=== PATIENT | male | born 1995 | race Caucasian/White ===

== ENCOUNTER 2018-09-24 18:20 | Inpatient (IN) | payer MEDICAID ==
[~2018-09-24] VITALS: Ht 188 cm; Wt 71.7 kg
[2018-09-24 18:20] VITALS: BP 98/68
--- NOTE | 2018-09-24 18:20 | NUR ---
PATIENT BIB ALS TO ER BED 5.
--- NOTE | 2018-09-24 18:20 | NUR ---
PT BIB EMS C/O DRUG INGESTION. PER EMS PT WAS SEEKING TO GET HIGH, TOOK MOTHER'S MEDICATIONS INCLUDING APPROX 17 RESPERIDONE AND OTHER UNKNOWN MED 3 TABLET. DENIES SI AT THIS TIME. PT IS AAOX4, DROWAY TO SPEAK. CONNECTED TO THE FULL ECO INDUSTRIAL DEVELOPMENT CONSULTANT, O2 SAT NORAML WITH RA. DENIES ANY PAIN , SOB , VOMITING AT THIS TIME. ALSO REPORTS METH USE EARLIER TODAY. DENIES PMH NKA
[2018-09-24] MEDS ORDERED: NACL 0.9% 1,000 ML IV ONE ×2 (18:23→21:25)
--- NOTE | 2018-09-24 18:37 | NUR ---
certified scrub tech at bedside.
--- NOTE | 2018-09-24 18:44 | NUR ---
CALLED [facility] CONTR[facility] OFFICE, PHONE RECEIVED BY [facility] CONTROL OFICER.. THE FOLLOWING RECOMMENDATIONS HAVE BEEN DONE ON RESPIRIDONE INGESTION 17 TABS , 12 LEAD EKG RECOMMENDED. 6-8 HRS OF OBSERVATION OF THE OVERDOSE. ON S/S OF VERY SLEEPY, HYPOTENSIVE, GIVE IV FLUID BOLUS, LEVOFED, PHENYLNEPHRINE. ON 12 LEAD EKG, OT INTERVAL IF PROLONGED MORE THAN 500 DANYA SEC, DRAW THE BLOOD SAMPLE FOR POT, CALCIUM AND MAGNESIUM. ADMINISTER MAG BOLUS , AFTER CHECKING THE MAGNESIUM LEVEL ON THE PT. FOR EXTRA-PYRAMIDAL SYMPTOMS , BENEDRYL AND CONGENTIN SHOULD BE GIVEN. OTHER MEDS WOULD INCLUDE TYLENOL, PERFORM THE URINE DRUG SCREEN AND BLOOD ALCOHOL LEVEL. TREID TO GET THE PHONE NUMEBER OF HIS MOTHER FROM PT, COULD NOT GIVE CORRECTLY. PT GAVE [phone], [phone]. ASKED TO CALL MOTHER AND FIND OUT THE OTHER MEDS FROM MOM. PT NOT SURE ABOU HIS MOM NUMBER. MOTHJER NAME IS NORBERTO. PER [facility] QUARRY BOSS, INFORMATION IS ONLY FOR RESPIRIDONE. NEEDS TO FIND THE INFO ON OTHER UNKNOWN MED. DR. BAUTISTA NOTIFIED.
[2018-09-24] MEDS ORDERED: LACTATED RINGERS 1,000 ML IV ONE (18:50)
--- NOTE | 2018-09-24 18:57 | NUR ---
CALLED BOTH PHONE NUMBER [phone], [phone]. ONE WAS WRONG NUMBER AND OTHER WAS WRIONG SOLE SCRAPER.
[2018-09-24 19:04] LABS: BASOPHILS % (AUTO) 0.2 % (0.0-2.0); EOSINOPHILS # (AUTO) 0.1 K/uL (0-0.4); EOSINOPHILS % (AUTO) 0.9 % (0.0-4.0); HEMATOCRIT 43.1 % (36-52); HEMOGLOBIN 14.8 g/dL (12.0-18.0); LYMPHOCYTES % (AUTO) 33.3 % (20.5-51.1); MEAN CORPUSCULAR HEMOGLOBIN 29 pg (27-31); MEAN CORPUSCULAR HGB CONC 34 g/dL (33-37); MEAN CORPUSCULAR VOLUME 84.9 fL (80-94); MONOCYTES # (AUTO) 0.7 K/uL (0.8-1.0); MONOCYTES % (AUTO) 11.1 % (1.7-9.3); NEUTROPHILS # (AUTO) 3.4 K/uL (1.8-7.7); NEUTROPHILS % (AUTO) 54.5 % (42.2-75.2); PLATELET COUNT (AUTO) 231 K/uL (140-450); RED BLOOD CELL COUNT(AUTO) 5.07 MIL/uL (4.20-6.10); RED CELL DISTRIBUTION WIDTH 13.1 % (11.6-13.7); WHITE BLOOD COUNT (AUTO) 6.1 K/uL (4.8-10.8)
[2018-09-24 19:29] LABS: ANION GAP 10.7 (8-16); CARBON DIOXIDE 26.5 mmol/L (21-32); CHLORIDE 104 mmol/L (98-107); GFR ARICAN-AMERICAN 121 mL/min (>90); GLUCOSE 101 mg/dL (74-106); POTASSIUM 3.2 mmol/L (3.5-5.1); SODIUM SERUM 138 mmol/L (136-145); UREA NITROGEN, BLOOD 9 mg/dL (7-18)
--- NOTE | 2018-09-24 19:29 | NUR ---
BEDSIDE REPORT GIVEN TO PM NURSE.
--- NOTE | 2018-09-24 19:34 | NUR ---
PT ACTING APPRORPRIATLY, PT SPEAKING IN CLEAR AND COMPLETE SENTENCES; AAOX4. POSITIONED FOR COMFORT. HOB ELEVATED. VSS. PT STATES 0/10 PAIN AT THIS TIME.
[2018-09-24 19:35] LABS: ACETAMINOPHEN < 0.5 ug/ml (10-30); ALBUMIN 3.2 g/dL (3.4-5.0); ASPARTATE AMINOTRANSFERASE 17 U/L (15-37); SALICYLATE < 2.8 mg/dL (2.8-20.0); TOTAL BILIRUBIN 0.3 mg/dL (0.0-1.0)
--- NOTE | 2018-09-24 19:36 | NUR ---
PT STATES HE DOES NOT HAVE TO GO PEE AT THIS TIME, PT ENCOURAGED TO PROVIDE URINE SAMPLE. WILL FOLLOW UP.
[2018-09-24] MEDS ORDERED: ONDANSETRON 4 MG/2 ML VIAL IM/IVP PRN (20:15)
[2018-09-24] MEDS ORDERED: DOCUSATE SODIUM 100 MG GELCAP PO PRN (20:15)
[2018-09-24 20:31] LABS: PROTHROMBIN TIME 9.8 secs (10.8-13.4)
[2018-09-24 20:37] LABS: FREE T4 (FREE THYROXINE) 0.98 ng/dL (0.76-1.46); MAGNESIUM 1.9 mg/dL (1.8-2.4); PHOSPHORUS 3.1 mg/dL (2.5-4.9); THYROID STIMULATING HORMONE 1.41 uIU/mL (0.34-3.74)
--- NOTE | 2018-09-24 21:00 | NUR ---
RECEIVED BEDSIDE REPORT FROM LINE SUPERVISOR. PT IS AAOX4. ON ROOM AIR RESPIRATIONS ARE EQUAL AND UNLABORED. LUNG SOUNDS ARE CLEAR. SKIN INTACT. PT WITH 3 BULLET SCARS ON BODY REFUSED TO EXAMINE PELVIS AREA. PER PATIENT TWO BULLETS IN HIP AND ONE ON BACK OF R SHOULDER. PT AMBULATED TO BED WAS USING FURNITURE TO WALK LOSING HIS BALANCE WILL PLACE ON FALL PRECAUTION. ADMIT VS: 91/42 MAP 51. HR 68 97.4 RR 17 99% ON RA. DR PATTERSON IN TO SEE PT. C/C PT TOOK MOTHERS SEROQUEL AND RISPERDAL. ADMISSION ASSESSMENT LIMITED D/T HIS CONDITION. ORIENTED TO ROOM,STAFF AND VISITING HOURS. MRSA SWAB OBTAINED. CALL LIGHT WITHIN REACH. WILL ROUND FREQUENTLY.
--- NOTE | 2018-09-24 21:02 | NUR ---
Admited to Tele. Patient went to room 112-B via gurney by RN and EMT. Belongings list completed. Report to MARCI Yang. Patient acting appropriatly, and speaking in clear and complete sentences at this time.
[2018-09-24 21:04] VITALS: BP 91/42
[2018-09-24] MEDS ORDERED: POTASSIUM CHLORIDE 10 MEQ TABER PO SCH (21:30)
--- NOTE | 2018-09-24 21:36 | NUR ---
ADMINISTERED 60 MEQ OF K DUR PT K 3.2L PT TOLERATED WELL. SITTING UP EATING SANDWICH. ALL NEEDS MET AT THIS TIME. CALL LIGHT WITHIN REACH. BED ALARM ON.
[2018-09-24] MEDS: NACL 0.9% 1,000 ML IV SCH (22:23)
--- NOTE | 2018-09-24 22:45 | NUR ---
SPOKE WITH NGUYEN FROM POISON CONTROL ASKED IF EKG WAS PERFORMED. EKG #1 ST WITH NORMAL QT. ALSO ASKED REGARDING LATEST VS AND LOC. PT IS AAOX4 SPEAKING CLEARLY BUT REMAINS DROWSY. 91/42, HR 68, 16, 97.4, 99% RA. NGUYEN SAID IT SEEM LIKE HE IS IMPROVING IF HE WOULD HAVE A REACTION HE WOULD BE PROGRESSIVELY WORSE. SAID TO MONITOR PT B/P AND EKG FOR PROLONGED QT > 500. DOCTORS ARE AWARE.
[2018-09-24] MEDS ORDERED: MULTIVITAMIN-12 10 ML, THIAMINE 100 MG, MAGNESIUM SULFATE 50% 2,000 MG, FOLIC ACID 1 MG... IV SCH ×5 (22:50)
--- NOTE | 2018-09-24 23:00 | NUR ---
PATIENT IS BACK FROM RADIOLOGY. IN STABLE CONDITION REMAINS DROWSY. BUT AAOX4. NO S/S OF DISTRESS. WILL CONTINUE TO MONITOR.
[2018-09-24] MEDS ORDERED: FOLIC ACID 5 MG/ML SYR IM SCH (23:30)
[2018-09-24] MEDS ORDERED: MULTIVITAMIN-12 10 ML in NACL 0.9% 1,000 ML IV SCH (23:30)
[2018-09-24] MEDS ORDERED: THIAMINE 200 MG/2 ML VIAL IM SCH (23:30)
[2018-09-24] MEDS ORDERED: MAG SULF 2000 MG/WATER PREMIX 50 ML IV SCH (23:45)
[2018-09-24] MEDS ORDERED: MULTIVITAMIN-12 10 ML VIAL IV ONE (23:54)
[2018-09-25] VITALS (10 sets, daily range): BP systolic 98–142; BP diastolic 52–88
--- NOTE | 2018-09-25 00:23 | NUR ---
VITAL SIGNS ARE WITHIN NORMAL LIMITS. SCHEDULED MEDICATIONS GIVEN MG RIDER AND MX VIT ARE NOW INFUSING PER ORDERS. SAFETY MEASURES ARE IN PLACE. WILL CONTINUE TO MONITOR.
--- NOTE | 2018-09-25 02:20 | NUR ---
MT NOTIFIED ME PTS HR ELEVATED HIGHEST 171. WENT IN TO SEE PT. HE IS AWAKE STATES HE NEEDS TO USE BATHROOM TOOK VS: 145/82 HR 78. ASSISTED PT TO BATHROOM UA COLLECTED. NO S/S OF DISTRESS. WILL CONTINUE TO MONITOR
[2018-09-25 03:19] LABS: APPEARANCE,URINE SL CLOUDY (CLEAR); BILIRUBIN,URINE NEGATIVE (NEGATIVE); BLOOD, URINE NEGATIVE (NEGATIVE); COLOR,URINE YELLOW (YELLOW); LEUKOCYTE ESTERASE ,URINE NEGATIVE (NEGATIVE); NITRITE, URINE NEGATIVE (NEGATIVE); PH,URINE 8.5 (5.0-9.0); UGLUCOSE NEGATIVE (NEGATIVE)
[2018-09-25 03:26] LABS: BARBITURATE, URINE NEG. ng/ml (NEG <=200); BENZODIAZEPINE, URINE NEG. ng/mL (NEG <=200); CANNABINOID, URINE NEG. ng/mL (NEG <=50); COCAINE, URINE NEG. ng/mL (NEG <=300); OPIATE, URINE NEG. ng/mL (NEG <=2000); PHENCYCLIDINE SCREEN,URINE NEG. ng/mL (NEG <=25)
--- NOTE | 2018-09-25 03:30 | NUR ---
PATIENTS HR ELEVATED 170S DR PATTERSON MADE AWARE. VS: 111/63 HR 140. TEMP 97.8 17, 99% RA. EKG ORDERED STAT. PT WAS AGITATED IV LINE WAS TANGLED ON PATIENTS GOWN PATIENT TRYING TO UNTANGLED. REORIENTED PATIENT AND SORTED IV AND FIXED GOWN. SAFETY MEASURES ARE IN PLACE. CALL LIGHT WITHIN REACH. BED ALARM ON. WILL CONTINUE TO MONITOR.
--- NOTE | 2018-09-25 03:46 | NUR ---
PTS HEART RATE ELEVATED AGAIN AT 155 DOCTORS IN ROOM WITH PT. WILL FOLLOW ANY NEW ORDERS. SAFETY MEASURES ARE IN PLACE.
--- NOTE | 2018-09-25 03:59 | NUR ---
EKG BEING PERFORMED. BENADRYL ADMINISTERED PER ORDERS. PT TOLERATED WELL. WILL CONTINUE TO MONITOR.
[2018-09-25] MEDS ORDERED: diphenhydrAMINE 50 MG/ML VIAL IVP SCH ×2 (04:00→21:00)
[2018-09-25] MEDS: NACL 0.9% 1,000 ML IV SCH ×3 (04:47→19:06)
--- NOTE | 2018-09-25 05:15 | NUR ---
EDGAR MCDONOUGH CALLED STATES PATIENT WAS HANGING ON THE TV AND HIT THE WALL. WHEN WALKED IN PATIENT WAS LEANING ON ON WALL LEGS WERE WOBBLING SECURITY WAS CALLED AND ASSISTED PATIENT ON TO THE WHEEL CHAIR PT WAS TRANSFERRED TO ROOM 109B TO BE CLOSER TO NURSES STATION. SAFETY MEASURES ARE IN PLACE. WILL CONTINUE TO MONITOR.
--- NOTE | 2018-09-25 05:55 | NUR ---
PATIENT MORE CONFUSED REMOVED IV AND GOWN. ASKED PATIENT QUESTION BUT DOESN'T REPLY. PATIENT OPEN EYES AND CAN MAKE EYE CONTACT. PATIENT NOW LAYING IN BED WILL INSERT NEW IV FOR IVF. SAFETY MEASURES ARE IN PLACE.
[2018-09-25] MEDS ORDERED: BENZTROPINE 2 MG/2 ML AMP IM SCH ×2 (06:00→21:00)
--- NOTE | 2018-09-25 06:55 | NUR ---
PATIENT TRIED TO GET OUT OF BED CALLED SECURITY AND PAGED PATIENT HAS UNSTEADY GAIT. PATIENT IS BACK IN BED WITH ALARM ON.
--- NOTE | 2018-09-25 07:20 | NUR ---
GAVE BEDSIDE REPORT TO DAY SHIFT RN. ENDORSED PATIENT IN STABLE CONDITION. ENDORSED NURSE TO FOLLOW UP WITH PHARMACY KRISS.
--- NOTE | 2018-09-25 07:21 | NUR ---
RECEIVED BEDSIDE REPORT FROM NIGHT NURSE. PT IS AOX0 IN BED MUMBLING AND NOT RESPONSIVE MEANINGFULLY TO ANY QUESTIONING. PT HAS LEFT FOREARM IV THAT IS RUNNING AT 100 ML/HR OF NORMAL SALINE. SAFETY MEASURES IN PLACE.
[2018-09-25 07:32] LABS: CHOL/HDL RATIO 2.4 (1-4.5)
--- NOTE | 2018-09-25 07:48 | NUR ---
RECEIVED CALL FROM JAMES AT PHARMACY THAT PT CONGENTIN IM IS IN CASSETTE NOW AND I CAN ADMINISTER THIS. WHEN I CAME INTO ROOM TO ADMINISTER MEDICATION TO PATIENT IV POLE WAS ON THE GROUND TIPPED OVER AND PATIENT WAS STANDING UNSTEADY SHAKING. ATTEMPTED TO COMMUNICATE WITH PATIENT THAT IT IS NOT SAFE FOR HIM TO STAND OR WALK AROUND. BROUGHT PT URINAL TO URINATE WHICH HE DID, BUT PATIENT IS STILL AOX0 WITH NO MEANINGFUL RESPONSES AND UNCLEAR HOW WELL HE UNDERSTANDS COMMUNICATION.
[2018-09-25 08:06] LABS: ANION GAP 14.7 (8-16); CARBON DIOXIDE 19.7 mmol/L (21-32); POTASSIUM 4.4 mmol/L (3.5-5.1)
--- NOTE | 2018-09-25 08:50 | NUR ---
WAS NOTIFIED PATIENT HAD URINATED ON THE FLOOR. CAME TO ASSESS PATIENT AND SAW THAT THE FLOOR HAD BEEN CLEANED IN PARTS, BUT UNCLEAR WHERE OR WHEN PATIENT HAD URINATED. CALLED CONSTRUCTION ANALYST TO HELP WITH CLEANING PATIENT UP, CONTACTED HOUSEKEEPING TO HELP CLEAN PATIENT ROOM. PATIENT QUICKLY STOOD UP, ATTEMPTED TO EXPLAIN TO PATIENT THAT HIS GAIT IS UNSTEADY AND IT IS UNSAFE FOR HIM TO WALK AROUND. PT IS SWINGING ARMS ANGRY IN RESPONSE AND GRABBED MY LEFT FOREARM QUICKLY AND LET GO. CONTACTED SECURITY TO COME TALK TO PATIENT AND INFORMED CHARGE NURSE OF PATIENT CONDITION WHO INFORMED ME SHE IS DEALING WITH IT AND WE ARE WAITING FOR A 1:1 SITTER.
[2018-09-25] MEDS ORDERED: BENZTROPINE 1 MG TAB PO SCH ×2 (09:00→21:00)
[2018-09-25] MEDS ORDERED: MULTIVITAMIN 1 TAB PO SCH (09:00)
--- NOTE | 2018-09-25 09:22 | NUR ---
PATIENT HAS BEEN SCREENED AND CATEGORIZED LOW NUTRITION RISK. PATIENT WILL BE SEEN WITHIN 7 DAYS OF ADMISSION. 10/01/[address]
[2018-09-25] MEDS: MULTIVITAMIN 1 TAB PO SCH (09:24)
[2018-09-25] MEDS: THIAMINE 100 MG TAB PO SCH (09:25)
[2018-09-25] MEDS: FOLIC ACID 1 MG TAB PO SCH (09:25)
--- NOTE | 2018-09-25 09:32 | NUR ---
ADMINISTERED MEDICATIONS. ALSO GAVE PATIENT NEW WARM BLANKET, BUT PATIENT REMAINS TO BE AOX0 WITH NO MEANINGFUL COMMUNICATION. 1:1 SITTER IS AT DOOR OF BEDROOM MONITORING PATIENT AT THIS TIME.
--- NOTE | 2018-09-25 09:56 | NUR ---
Witnessed the patient push past his sitter in [facility] and exit the building. Moments later, the patient was brought into the emergency department via wheelchair accompanied by family. The patient was then returned to [facility] via wheelchair for continuation of care.
--- NOTE | 2018-09-25 09:57 | NUR ---
HEARD SITTER TELLING PATIENT NOT TO LEAVE ROOM AND CAME TO DOOR TO FIND PATIENT ALREADY DOWN [place] RUNNING WITH IV POLE ROLLING BESIDE HIM. PATIENT THEN RAN OUT OF EMERGENCY EXIT DOOR LEAVING IV POLE RIPPING OUT IV AND EXITING THE BUILDING. CHARGE NURSE AND VARIOUS STAFF AT SCENE WELL WITH SECURITY NOTIFIED AND ARRIVING SHORTLY AFTER. PT SEEN OUTSIDE OF BUILDING RUNNING DOWN [facility]. WHEN I ENTERED BACK INTO THE BUILDING THE MOTHER AND OTHER VISITOR WAS AT BEDROOM DOOR ASKING WHERE HE IS. I INFORMED THEM OF WHAT HAPPENED AND ESCORTED THEM TO THE DOOR AND EXPLAINED THAT HE RAN DOWN [facility] AND INFORMED THEM OF THE DIRECTION.
[2018-09-25 10:20] LABS: BASOPHILS % (AUTO) 0.2 % (0.0-2.0); EOSINOPHILS % (AUTO) 0.4 % (0.0-4.0); HEMATOCRIT 42.2 % (36-52); HEMOGLOBIN 14.3 g/dL (12.0-18.0); LYMPHOCYTES # (AUTO) 1.5 K/uL (2.0-11.5); MEAN CORPUSCULAR HEMOGLOBIN 29 pg (27-31); MEAN CORPUSCULAR HGB CONC 34 g/dL (33-37); MEAN CORPUSCULAR VOLUME 86.4 fL (80-94); MONOCYTES # (AUTO) 0.6 K/uL (0.8-1.0); NEUTROPHILS # (AUTO) 5.4 K/uL (1.8-7.7); NEUTROPHILS % (AUTO) 71.4 % (42.2-75.2); PLATELET COUNT (AUTO) 231 K/uL (140-450); RED BLOOD CELL COUNT(AUTO) 4.88 MIL/uL (4.20-6.10); RED CELL DISTRIBUTION WIDTH 13.1 % (11.6-13.7); WHITE BLOOD COUNT (AUTO) 7.5 K/uL (4.8-10.8)
--- NOTE | 2018-09-25 10:34 | NUR ---
GAVE BEDSIDE REPORT TO BOTH ICU NURSES WITH ER NURSE AT BEDSIDE WELL AND PATIENT'S MOTHER EDMUND ALSO PRESENT. ON THE WAY TO ICU EDMUND INFORMED ME SHE FOUND A SUICIDE NOTE OF PATIENT. INFORMED ICU NURSE OF THIS INFORMED HER IT WAS PREVIOUSLY UNDERSTOOD THAT HE STATED HE WAS JUST TRYING TO GET HIGH AND NOT IN FACT TRYING TO KILL HIMSELF. THEY INFORMED ME THEY WOULD CALL THE RESIDENTS FOR 5150 POSSIBLE ORDER. PATIENT IS STABLE AT THIS TIME RESTING IN BED WITH NO SIGNS OF OBVIOUS DISTRESS AGREEABLE TO LAYING IN BED.
--- NOTE | 2018-09-25 10:35 | NUR ---
RECEIVED PATIENT BROUGHT BY ER RETANNER VIA WHEELCHAIR. ICU CN, ICU DIRECTOR AWARE THIS PATIENT IS BEING TRANSFERRED TO ICU. REPORT RECEIVED FROM RESEARCH ENVIRONMENTAL SCIENTIST
--- NOTE | 2018-09-25 10:52 | NUR ---
DR. BOTELLO AT BEDSIDE. PATIENT'S MOTHER AT BEDSIDE. PHYSICIAN MADE AWARE THAT PATIENT LEFT A "GOODBYE LETTER" AT HOME PER PATIENT'S MOM
[2018-09-25] MEDS: LORazepam 2 MG/ML VIAL IVP PRN ×4 (11:06→23:33)
--- NOTE | 2018-09-25 11:20 | NUR ---
REPORT GIVEN TO NEYMAR COVARRUBIAS FOR CONTINUITY OF CARE
--- NOTE | 2018-09-25 11:26 | NUR ---
PATIENT'S MOTHER AT BEDSIDE, PATIENT IS RESTING, NO SIGNS OF DISTRESS AT THIS TIME, WILL CONTINUE TO MONITOR.
--- NOTE | 2018-09-25 12:21 | NUR ---
DR. BOTELLO CALLED, AWARE OF PATIENT BP BEING 107/38, STATES TO GIVE 500ML BOLUS.
--- NOTE | 2018-09-25 12:25 | NUR ---
DR. BOTELLO AND RT AT BEDSIDE FOR EKG
[2018-09-25] MEDS ORDERED: NACL 0.9% 500 ML IV SCH (13:00)
--- NOTE | 2018-09-25 13:00 | NUR ---
SW attempted to conduct assessment with patient and provide drug rehabilitation resources. Per nursing staff [place], patient is heavily sedated and is not in the right condition to speak to at this time. SW will follow up at a later time.
[2018-09-25 13:22] LABS: ALBUMIN 3.3 g/dL (3.4-5.0); ANION GAP 17.5 (8-16); CARBON DIOXIDE 18.7 mmol/L (21-32); POTASSIUM 4.2 mmol/L (3.5-5.1); TOTAL BILIRUBIN 0.4 mg/dL (0.0-1.0)
--- NOTE | 2018-09-25 16:52 | NUR ---
PATIENT WAS RESTLESS AND AGITATED, COMBATIVE, WANTING TO GET OUT OF BED. PATIENT'S MOTHER WAS AT BEDSIDE, EDUCATED ON USE OF ATIVAN. AGREES WITH GIVING PATIENT ATIVAN 1MG PRN. MEDICATION GIVEN, PATIENT TOLERATED WELL
[2018-09-25] MEDS ORDERED: diphenhydrAMINE 50 MG/ML VIAL IVP PRN (17:25)
--- NOTE | 2018-09-25 18:35 | NUR ---
DR. BUTLER AT BEDSIDE TO SEE PATIENT, UPDATED ON PATIENT'S CONDITION. WILL FOLLOW UP ON ANY ORDERS.
--- NOTE | 2018-09-25 19:07 | NUR ---
RECEIVED BEDSIDE REPORT FROM DAY SHIFT RN, PT STABLE, NO DISTRESS NOTEED, IV TO L FA 22G, PATENT, INTACT, INFUSING NS @ 126ML/HR, PT ON ROOM AIR, NO SOB NOTED, INITIAL ASSESSMENT DONE, ALL SAFETY PRECAUTION MET, WILL CONTINUE TO MONITOR.
--- NOTE | 2018-09-25 19:22 | NUR ---
PT RESTLESS AND AGITATED, ATIVAN ORDERED ADMINISTERED, PT TOLERATED WELL, NO DISTRESS NOTED, CALL LIGHT WITHIN REACH, WILL CONTINUE TO MONITOR.
--- NOTE | 2018-09-25 19:30 | NUR ---
SPOKE WITH DR. BUTLER. INFORMED MD ABOUT PT CONDITION. PT AGITATED FLAILING EXTREMITIES, UNABLE TO FOLLOW COMMANDS. VSS @ THIS TIME, MD AWARE. MD ORDERED 1:1 SUPERVISION FOR PT. WILL CONTINUE TO MONITOR.
--- NOTE | 2018-09-25 20:22 | NUR ---
DUE MEDICATION ADMINISTERED, PT TOLERATED WELL, NO DISTRESS NOTED, CALL LIGHT WITHIN REACH, WILL CONTINUE TO MONITOR.
[2018-09-25] MEDS: BENZTROPINE 2 MG/2 ML AMP IVP SCH (20:23)
--- NOTE | 2018-09-25 23:33 | NUR ---
PT AGITATED, RESTLESS, HR 135, BP 137/86, MEDICATION ORDERED ADMINISTERED, PT TOLERATED WELL, NO DISTRESS NOTED, CALL LIGHT WITHIN REACH, WILL CONTINUE TO MONITOR.
[2018-09-26] VITALS (11 sets, daily range): BP systolic 120–139; BP diastolic 67–101
--- NOTE | 2018-09-26 02:10 | NUR ---
PT SLEEPING, NO DISTRESS NOTED, CALL LIGHT WITHIN REACH, SITTER AT BEDSIDE, WILL CONTINUE TO MONITOR.
[2018-09-26] MEDS: NACL 0.9% 1,000 ML IV SCH (03:01)
--- NOTE | 2018-09-26 04:14 | NUR ---
CHECKED ON PT, PT SLEEPING, NO DISTRESS NOTED, CALL LIGHT WITHIN REACH, SITTER AT BEDSIDE, WILL CONTINUE TO MONITOR.
--- NOTE | 2018-09-26 06:11 | NUR ---
PT SLEEPING, NO DISTRESS NOTED, CALL LIGHT WITHIN REACH, WILL CONTINUE TO MONITOR.
[2018-09-26 06:36] LABS: ANION GAP 13.2 (8-16); CARBON DIOXIDE 21.5 mmol/L (21-32); POTASSIUM 3.7 mmol/L (3.5-5.1)
[2018-09-26 06:51] LABS: MAGNESIUM 2.1 mg/dL (1.8-2.4); PHOSPHORUS 3.6 mg/dL (2.5-4.9)
--- NOTE | 2018-09-26 07:14 | NUR ---
ENDORSED PT TO DAY SHIFT NURSE, PT STABLE, NO DISTRESS NOTED, CALL LIGHT WITHIN REACH.
[2018-09-26 07:22] LABS: BASOPHILS % (AUTO) 0.3 % (0.0-2.0); EOSINOPHILS # (AUTO) 0.1 K/uL (0-0.4); EOSINOPHILS % (AUTO) 1.2 % (0.0-4.0); HEMATOCRIT 41.1 % (36-52); HEMOGLOBIN 13.9 g/dL (12.0-18.0); LYMPHOCYTES # (AUTO) 2.3 K/uL (2.0-11.5); LYMPHOCYTES % (AUTO) 39.4 % (20.5-51.1); MEAN CORPUSCULAR HEMOGLOBIN 29 pg (27-31); MEAN CORPUSCULAR HGB CONC 34 g/dL (33-37); MEAN CORPUSCULAR VOLUME 86.5 fL (80-94); MONOCYTES # (AUTO) 0.5 K/uL (0.8-1.0); MONOCYTES % (AUTO) 8.1 % (1.7-9.3); PLATELET COUNT (AUTO) 229 K/uL (140-450); RED BLOOD CELL COUNT(AUTO) 4.75 MIL/uL (4.20-6.10); RED CELL DISTRIBUTION WIDTH 13.2 % (11.6-13.7); WHITE BLOOD COUNT (AUTO) 5.8 K/uL (4.8-10.8)
--- NOTE | 2018-09-26 07:33 | NUR ---
REPORT RECEIVED FROM TORI RN. PT IS ASLEEP AT THIS TIME. PERRL. BILATERAL LUNGS SOUNDS CLEAR. 99% AT ROOM AIR. NO EDEMA. PERIPHERAL IV LINE LEFT FA W/ 22G. PATENT AND ASYMPTOMATIC. IVF RUNNING ORDERED. SINUS ON MONITOR. ON BEHAVIORAL MONITORING AND 1:1 SITTER. NO S/SX OF PAIN OR DISCOMFORT. ALL SAFETY PRECAUTIONS ARE IN PLACE. WILL CONTINUE TO MONITOR.
[2018-09-26] MEDS: MULTIVITAMIN 1 TAB PO SCH (09:00)
[2018-09-26] MEDS: THIAMINE 100 MG TAB PO SCH (09:00)
[2018-09-26] MEDS: FOLIC ACID 1 MG TAB PO SCH (09:00)
--- NOTE | 2018-09-26 09:07 | NUR ---
RECEIVED A CALL FROM ALKA SHAFFER'S MOTHER. UPDATED HER ABOUT HIS CONDITION AND SHE SAID WOULD COME BY TO SEE HIM TODAY.
[2018-09-26] MEDS: BENZTROPINE 2 MG/2 ML AMP IVP SCH ×2 (09:27→20:08)
--- NOTE | 2018-09-26 09:34 | NUR ---
AM PO MEDS COULD NOT BE ADMINISTERED DUE TO PT IN ASLEEP. RESIDENT MD MADE AWARE.
[2018-09-26] MEDS: LORazepam 2 MG/ML VIAL IVP PRN ×4 (10:01→20:42)
--- NOTE | 2018-09-26 10:06 | NUR ---
PT NOTICED WITH AGITATION PULLING LINENS/ CLOTHES OFF AND ATTEMPTING TO PULL IV LINE. BECAME SINUS TACHYCARDIC. REDIRECTIONS PROVIDED BUT UNSUCCESSFUL. ATIVAN ADMINISTERED ORDERED. WILL CONTINUE TO MONITOR.
--- NOTE | 2018-09-26 10:24 | NUR ---
BS=74. NOTIFIED DR. BOTELLO. NEW ORDER RECEIVED. WILL CARRY OUT.
[2018-09-26] MEDS: DEXT 5% / NACL 0.45% 1,000 ML IV SCH ×2 (10:59→20:40)
--- NOTE | 2018-09-26 11:25 | NUR ---
ASSISTED WITH BED BATH AND LINEN CHANGE.
--- NOTE | 2018-09-26 12:10 | NUR ---
PT ASLEEP. FLACC 0. VS WNL. REPOSITIONED FOR COMFORT. WILL CONTINUE TO MONITOR.
--- NOTE | 2018-09-26 12:51 | NUR ---
EDMUND, MOTHER AT BED SIDE. DR. BOTELLO ANSWERED ALL THE QUESTIONS THAT EDMUND HAD.
--- NOTE | 2018-09-26 13:51 | NUR ---
PT OCCASIONAL MOVES THE BODY POSITION. ASSISTED WITH REPOSITIONING. VS WNL. NO S/SX OF PAIN OR DISCOMFORT. CONTINUING WITH CLOSE MONITORING.
--- NOTE | 2018-09-26 14:05 | NUR ---
FATHER VISITING AT BED SIDE. MOTHER ALSO AT BED SIDE.
--- NOTE | 2018-09-26 14:59 | NUR ---
PT STARTED PULLING OFF THE LINENS AND CLOTHES. RESTLESSNESS NOTED. REDIRECTION PROVIDED BUT UNSUCCESSFUL. ATIVAN ADMINISTERED ORDERED. REPOSITIONED FOR COMFORT. WILL CONTINUE TO MONITOR.
--- NOTE | 2018-09-26 15:21 | NUR ---
ASSISTED WITH LINEN CHANGE AND BED BATH. REPOSITIONED FOR COMFORT. NO RESTLESSNESS OR AGITATION NOTED. VS WNL. WILL CONTINUE TO MONITOR.
--- NOTE | 2018-09-26 16:31 | NUR ---
PT ASLEEP WITH OCCASIONAL SELF-REPOSITIONING. ASSISTED WITH REPOSITIONING FOR COMFORT. VS WNL. WILL CONTINUE TO MONITOR.
--- NOTE | 2018-09-26 17:00 | NUR ---
PT BECAME VERY RESTLESS AND PULLED OUT A FEW LEAD ON THE CHEST. NOTED TRYING TO CLIMB OUT OF THE BED AND MUMBLING WORDS. REDIRECTED THE PT AND PT NOTED SWINGING HIS ARMS TOWARDS THE STAFF. ATIVAN ADMINISTERED ORDERED. WILL CONTINUE TO MONITOR.
--- NOTE | 2018-09-26 17:14 | NUR ---
PT CALM AND SLEEPING AT THIS TIME. VS WNL. ASSISTED WITH REPOSITIONING FOR COMFORT. CARE ENDORSED TO ANOTHER RN IN THE UNIT. ALL SAFETY PRECAUTIONS ARE IN PLACE.
--- NOTE | 2018-09-26 18:07 | NUR ---
PT SLEEPING, NO RESPIRATORY DISTRESS OR DISCOMFORT NOTED. VITALS STABLE.
--- NOTE | 2018-09-26 18:48 | NUR ---
PT'S BED PAD WAS WET, CLEANED PT. CHANGED PAD.
--- NOTE | 2018-09-26 19:05 | NUR ---
RECEIVED REPORT FROM DAYSHIFT NURSE, WILL CONTINUE TO MONITOR.
--- NOTE | 2018-09-26 20:15 | NUR ---
PATIENT HAS EYES CLOSED, RESTING IN BED. CANNOT OPEN EYES TO VOICE OR MAKE NEEDS KNOWN. ANOx0, PERRL SLUGGISH 3MM. SKIN IS WARM AND DRY, AFEBRILE 97.6. ON ROOM AIR, SATURATION 99%. HR-74, BP-122/67. CAP REFILL <3 SECONDS. UNLABORED BREATHING,EQUAL CHEST RISE RHONCHI HEARD IN BILATERAL UPPER LOBES, RR 21. S1S2, SR ON MONITOR. PATIENTS ABDOMEN IS SOFT, NONTENDER, ACTIVE BOWEL SOUNDS. LEFT FOREARM PERIPHERAL IV 22G, RUNNING D51/2NS @ 100ML/HR. PATIENT INCONTINENT, PADS/TOWELS IN PLACE. ALL SAFETY/BED ALARMS IN PLACE, BED IN LOWEST POSITION, SIDE RAILS UP, FALL RISK PRECAUTIONS IN PLACE, ONE TO ONE CLOSE MONITORING.
--- NOTE | 2018-09-26 20:20 | NUR ---
DR. ESTRADAREES IN TO ASSESS PATIENT AND GET ANY UPDATES. WILL CARRY OUT ANY NEW ORDERS.
--- NOTE | 2018-09-26 20:40 | NUR ---
PATIENT RESTLESS, ATTEMPTING TO TAKE OFF GOWN. PATIENT ATTEMPTING TO GET OUT OF BED, CONFUSED. REORIENTED THE PATIENT.
--- NOTE | 2018-09-26 20:42 | NUR ---
PATIENT RESTLESS AND HEART RATE INCREASING, REDIRECTION/REORIENTATION UNSUCCESSFUL, ATIVAN ADMINISTERED ORDERED. REPOSITIONED FOR COMFORT. WILL CONTINUE TO MONITOR.
--- NOTE | 2018-09-26 22:50 | NUR ---
PATIENT BECOMES RESTLESS WHEN URINATING, BECOMES TACHYCARDIC. REAPPLIED NEW AND DRY TOWELS/PADS TO PERINEAL AREA FOR INCONTINENCE. REDIRECTED PATIENT. CALM IN BED, HEART RATE BACK DOWN TO NORMAL LIMITS.
[2018-09-27] VITALS (12 sets, daily range): BP systolic 98–135; BP diastolic 57–108
--- NOTE | 2018-09-27 00:23 | NUR ---
VS REMAINS STABLE. SR ON MONITOR. RESPIRATIONS ARE EVEN AND UNLABORED. AFEBRILE. FLACC 0. PT DOES NOT APPEAR TO BE EXPERIENCING ANY DISCOMFORT. BED AT THE LOWEST POSSIBLE POSITION.
--- NOTE | 2018-09-27 02:30 | NUR ---
PT IN BED. EYES ARE CLOSED. NO SIGNS OF DISTRESS NOTED. NO SOB. CHEST RISE SYMMETRIC WITH UNLABORED BREATHING. VS STABLE. SR TO ST ON MONITOR. PT ABLE TO REPOSITION SELF. WILL CONTINUE TO MONITOR.
[2018-09-27] MEDS: LORazepam 2 MG/ML VIAL IVP PRN ×6 (03:19→21:16)
--- NOTE | 2018-09-27 05:23 | NUR ---
NO CHANGE IN PT'S CONDITION AT THIS TIME. EYES ARE CLOSED. RESPIRATIONS ARE EVEN AND UNLABORED. VS REMAINS STABLE. PT STILL DROWSY. OCCASIONALLY WAKES UP TO STATE THAT HE WANTS TO VOID.
[2018-09-27] MEDS: DEXT 5% / NACL 0.45% 1,000 ML IV SCH ×2 (05:44→17:06)
--- NOTE | 2018-09-27 07:12 | NUR ---
REPORT GIVEN TO MORNING RN, CELIA, FOR CONTINUITY OF CARE. VS STABLE AT THIS TIME.
[2018-09-27 07:15] LABS: ANION GAP 15.2 (8-16); CARBON DIOXIDE 21.4 mmol/L (21-32); POTASSIUM 3.6 mmol/L (3.5-5.1)
--- NOTE | 2018-09-27 07:20 | NUR ---
RECEIVED BEDSIDE REPORT FROM PLASTIC SURGERY NURSE MARCI POE. PT RESTING IN BED, SLEEPING. OPEN EYES TO LIGHT PAIN. ORIENTED X1, TO NAME. PT IS DROWSY AND LETHARGIC. NOT FOLLOWING COMMANDS. ON ROOM AIR. BREATHING EVEN AND UNLABORED, SR AT REST ON MONITOR. ABDOMEN SOFT, NONTENDER, ACTIVE BOWEL SOUNDS. LEFT FOREARM PERIPHERAL IV 22G, RUNNING D51/2NS AT 100ML/HR. ALL SAFETY MEASURES IN PLACE, BED IN LOWEST POSITION, SIDE RAILS UP, FALL RISK PRECAUTIONS IN PLACE, ON ONE TO ONE CLOSE MONITORING.
[2018-09-27 07:21] LABS: MAGNESIUM 1.9 mg/dL (1.8-2.4); PHOSPHORUS 3.9 mg/dL (2.5-4.9)
[2018-09-27 07:53] LABS: BASOPHILS % (AUTO) 0.5 % (0.0-2.0); EOSINOPHILS # (AUTO) 0.1 K/uL (0-0.4); EOSINOPHILS % (AUTO) 1.1 % (0.0-4.0); HEMATOCRIT 43.7 % (36-52); HEMOGLOBIN 14.9 g/dL (12.0-18.0); LYMPHOCYTES # (AUTO) 1.5 K/uL (2.0-11.5); LYMPHOCYTES % (AUTO) 22.5 % (20.5-51.1); MEAN CORPUSCULAR HEMOGLOBIN 29 pg (27-31); MEAN CORPUSCULAR HGB CONC 34 g/dL (33-37); MEAN CORPUSCULAR VOLUME 85.7 fL (80-94); MONOCYTES # (AUTO) 0.6 K/uL (0.8-1.0); MONOCYTES % (AUTO) 8.5 % (1.7-9.3); NEUTROPHILS # (AUTO) 4.5 K/uL (1.8-7.7); NEUTROPHILS % (AUTO) 67.4 % (42.2-75.2); PLATELET COUNT (AUTO) 254 K/uL (140-450); RED CELL DISTRIBUTION WIDTH 13.2 % (11.6-13.7); WHITE BLOOD COUNT (AUTO) 6.6 K/uL (4.8-10.8)
[2018-09-27] MEDS: MULTIVITAMIN 1 TAB PO SCH (09:00)
[2018-09-27] MEDS: THIAMINE 100 MG TAB PO SCH (09:00)
[2018-09-27] MEDS: FOLIC ACID 1 MG TAB PO SCH (09:00)
--- NOTE | 2018-09-27 09:08 | NUR ---
PT TRIED TO GET UP. PT MUMBLING THAT HE NEEDS GO TO RESTROOM. TOLD PT THAT IT IS NOT SAFE FOR HIM TO GET UP AND GO TO THE RESTROOM RIGHT NOW, HE MIGHT FALL, AND HE CAN USE URINAL OR PEE IN THE PADS AND WE CAN CLEAN HIM AFTERWARDS. OFFERED PT URINAL AND HE GOT AGITATED, KICKED THE FOOTBOARD OF THE BED SEVERAL TIMES AND RIPPED OFF HIS WRIST BAND AND PULSE OX. WILL GIVE ATIVAN TO CALM PT DOWN.
--- NOTE | 2018-09-27 09:10 | NUR ---
PT WET THE CHUX, CLEANED PT GARETT AREA AND CHANGED CHUX. PT IS LYING DOWN AND RESTING IN BED.
[2018-09-27] MEDS: BENZTROPINE 2 MG/2 ML AMP IVP SCH ×2 (09:21→20:20)
--- NOTE | 2018-09-27 10:08 | NUR ---
PT STILL RESTLESS. TRYING TO GET OUT OF BED. REORIENTED PT HOWEVER IT DID NOT WORK. PT IS DROWSY AND CONFUSED. PT IS MUMBLING HE WANTS TO GO TO THE AIRPORT, PT REMOVING EKG LEADS. WILL GIVE BENADRYL TO HELP PT REST.
[2018-09-27] MEDS: diphenhydrAMINE 50 MG/ML VIAL IVP PRN (10:09)
--- NOTE | 2018-09-27 10:10 | NUR ---
PT PULLED OUT HIS IV WHILE TRYING TO GET UP. PT WET THE BED, YELLOW URINE. CLEANED PT AND CHANGED ALL LINENS.
--- NOTE | 2018-09-27 11:55 | NUR ---
PT GOT UP AND WANTS TO PEE, OFFERED URINAL, PT SAT UP AT THE EDGE OF THE BED AND PEED ON THE FLOOR. EVS PAGED. HELPED PT WENT BACK TO BED. CHANGED PT'S SOCKS.
--- NOTE | 2018-09-27 13:47 | NUR ---
PT'S MOTHER IS HERE. DR MATUTE IS UPDATING HER ON PT'S STATUS.
--- NOTE | 2018-09-27 14:30 | NUR ---
HELPED PT GOT UP TO USE BEDSIDE COMMODE. PT URINATED. AND RETURNED TO BED.
--- NOTE | 2018-09-27 14:32 | NUR ---
MOTHER AT BEDSIDE. OFFERED MILK AND JELLO. CALLED [employer]ITCH[employer] FOR ICE CREAM. MOTHER HELPED PT TO EAT. Addendum: 09/27/18 at 1436 by Dontae Robert RN HOWEVER, PT DID NOT TAKE MUCH. PT WENT BACK TO SLEEP.
--- NOTE | 2018-09-27 14:50 | NUR ---
MOTHER AT BEDSIDE TALKING TO PT. PT GOT AGITATED. STARTED THROWING FISTS. MOTHER SHOUTING HE NEEDS THE SHOT. I ASKED PT TO CALM DOWN AND TELL US WHAT WE CAN DO TO HELP HIM. PT STILL AGITATED AND TRYING TO GET OUT OF BED. TEARED OFF BLOOD PRESSURE CUFF AND PULSE OX. WENT TO GET THE ATIVAN AND ADMINISTERED TO PT VIA IV. PT STILL AGITATED TRYING TO CLIMB UP THE WINDOW SHELF AND GET OUT THROUGH THE WINDOW. MOTHER HELPED HELD PT DOWN AND BACK TO BED. JUAN NGUYEN WAS CALLED. PT STARTED CALMING DOWN. DR MATUTE AND MARCI PINK CAME, PT SITTING IN BED, GETTING TIRED. HELPED PT LYING DOWN IN BED.
--- NOTE | 2018-09-27 15:30 | NUR ---
HELPED PT GOT UP TO USE BEDSIDE COMMODE. PT URINATED. AND RETURNED TO BED.
--- NOTE | 2018-09-27 15:45 | NUR ---
PT SITTING UP ASKING FOR HEADPHONE AND FOOD. MOTHER SAID WILL BRING HEADPHONE FOR HIM TOMORROW AND STARTED FEEDING PT ICE CREAM. PT SAID WANTS TO GO HOME, MOTHER SAID WILL TAKE HIM HOME WHEN HE IS READY. PT GOT AGITATED AND STARTED PUSHING HIS MOTHER AND CURSING. HIS MOTHER TACKLED HIM ONTO THE BED. JUAN DORMAN WAS CALLED. DR MATUTE AND MARCI PINK CAME. REORIENTED PT. GOT PT TO SIT ON THE COMMODE CHAIR. PT IS CALMER AT THIS TIME. Addendum: 09/27/18 at 1712 by Dontae Robert RN NO INJURIES NOTED ON PT. PT'S MOTHER DENIED ANY INJURIES.
[2018-09-27] MEDS ORDERED: FLUMAZENIL 0.5 MG/5 ML VIAL IVP SCH (15:49)
[2018-09-27] MEDS ORDERED: LORazepam 2 MG/ML VIAL IM/IVP PRN (15:50)
[2018-09-27] MEDS ORDERED: HALOPERIDOL IM 5 MG/ML VIAL IM SCH (16:00)
--- NOTE | 2018-09-27 16:15 | NUR ---
DR MATUTE ORDERED TO GIVE HALDOL 5MG AND BENADRYL 25MG AT THE SAME TIME. HOWEVER, PT IS SLEEPING IN BED RIGHT NOW. MOTHER AT BEDSIDE AND REFUSED HALDOL AND BENADRYL AT THIS TIME, SHE WANTS US TO GIVE WHEN PT IS AGITATED. CALLED DR PADILLA AND MADE HIM AWARE. DR PADILLA SAID, IT'S OK, WE CAN GIVE WHEN HE IS AGITATED AND ACTING UP AGAIN.
--- NOTE | 2018-09-27 17:45 | NUR ---
CALLED DR PADILLA, ASKED IF HE WANTS TO SWITCH HALDOL 5MG TO PRN. HE SAID NO, JUST CALL THE RESIDENT DR TO ORDER IT WHEN PT GETS AGITATED.
--- NOTE | 2018-09-27 18:45 | NUR ---
PT SLEEPING IN BED, RIGHT LATERAL POSITION. NO S/S OF RESPIRATORY DISTRESS. HR 84, SR. NO PROLONGED QT INTERVAL SEEN.
--- NOTE | 2018-09-27 19:10 | NUR ---
REPORT GIVEN TO BOTTOM CRANE OPERATOR RN, [place]. PT IS CURRENTLY SLEEPING IN BED.
--- NOTE | 2018-09-27 19:15 | NUR ---
RECEIVED REPORT FROM DAY SHIFT NURSE AT PATIENTS BEDSIDE. PATIENT IS ON 1:1 SITTER. PATIENT CALM, RESTING IN BED. WILL FOLLOWUP CARE.
--- NOTE | 2018-09-27 20:15 | NUR ---
PATIENT WAKING UP, SLIGHTLY CONFUSED, ANOx1 TO NAME. PATIENT VERBALIZES HE IS THIRSTY, REQUESTING WATER AND FOOD. SAT PATIENT UP, ATE 4-5 BITES OF DINNER AND A FEW SIPS OF WATER AND RETURNED TO LYING DOWN IN BED. PATIENT STABLE AT THIS TIME.
--- NOTE | 2018-09-27 20:57 | NUR ---
PATIENT RESTING CALMLY IN BED, EYES CLOSED, DOES NOT RESPOND TO VOICE. SLIGHTLY AROUSABLE TO LIGHT PAIN. ANOx0 PERRL [place]GG[place] 3MM. SKIN IS WARM AND DRY, AFEBRILE 98.2. HR-78, BP-112/62, O2SAT 98%, RR-14, EVEN AND UNLABORED ON ROOM AIR. LUNG SOUNDS SLIGHTLY DIMINISHED AT BASES. SYMMETRICAL CHEST RISE. S1S2, RADIAL PULSES PALPATED +3, CAP REFILL <3 SEC. PATIENT HAS RIGHT AC PERIPHERAL IV 20G, WITH D51/2NS RUNNING AT 100ML. SITE IS INTACT, ASYMPTOMATIC. PATIENT HAS BEDSIDE COMMODE WITH 1:1 CLOSE MONITORING. FLACC 0 FALL RISK SIGNS AND ID BANDS IN PLACE, SAFETY ALARMS AND BED ALARMS CHECKED. BED IN LOWEST POSITION WITH SIDERAILS UP. WILL CONTINUE TO MONITOR Addendum: 09/27/18 at 2106 by Lexis Muse RN TIME OF ASSESSMENT AT 1949
--- NOTE | 2018-09-27 21:20 | NUR ---
PATIENT WAKES UP AND IS TOSSING AND TURNING IN BED, HEART RATE INCREASES TO 120'S-130'S. PATIENT GIVEN ATIVAN 0.5MG, WILL CONTINUE TO MONITOR.
--- NOTE | 2018-09-27 21:50 | NUR ---
PATIENT IS RESTING CALMLY IN BED, VITAL SIGNS WITHIN NORMAL LIMITS. HEART RATE BACK DOWN TO 80'S. NO SIGNS OF DISTRESS. WILL FOLLOW THROUGH.
[2018-09-28] VITALS (8 sets, daily range): BP systolic 98–144; BP diastolic 51–106
--- NOTE | 2018-09-28 00:05 | NUR ---
PATIENT REPOSITIONED, ALIGNED HEAD AND NECK FOR COMFORT. NO FEVER, 97.9. VITAL SIGNS WITHIN NORMAL LIMITS. PATIENT CALM IN BED, EYES CLOSED. WILL CONTINUE TO MONITOR
[2018-09-28] MEDS: DEXT 5% / NACL 0.45% 1,000 ML IV SCH ×3 (02:07→22:30)
--- NOTE | 2018-09-28 02:10 | NUR ---
PATIENT IS RESTING WELL IN BED, ASSISTED PATIENT TO A COMFORTABLE POSITION. PATIENT IS LYING DOWN RIGHT SIDE LATERAL. BREATHING IS EVEN AND UNLABORED. ASSESSED IV SITE, PATENT AND NO SIGNS OF INJURY. WILL CONTINUE 1:1 CLOSE MONITORING.
--- NOTE | 2018-09-28 04:03 | NUR ---
PATIENT VERBALIZES HE IS COLD, WAS GIVEN AN ADDITIONAL BLANKET AND REPOSITIONED FOR COMFORT. VITAL SIGNS STABLE, TEMPERATURE 98.0. PATIENT RESTING IN BED
--- NOTE | 2018-09-28 05:10 | NUR ---
PATIENT AWAKE AND ABLE TO MAKE NEEDS KNOWN. REQUESTED THE URINAL. OUTPUT 280ML, URINE DARK YELLOW AND CLEAR. ASKED TO OPEN EYES, OPENS EYES SPONTANEOUSLY. PATIENT CLEANED AND PROVIDED ORAL CARE. PATIENT TOOK A FEW BITES OF FOOD BUT DID NOT LIKE THE PINEAPPLE. REQUESTED LUNCH, WILL WAIT FOR BREAKFAST TRAY. PATIENT ORIENTED TO NAME ONLY, ASKED HIM WHAT TODAYS DATE IS AND HE REPLIES July.
--- NOTE | 2018-09-28 05:40 | NUR ---
PATIENT IS DROWSY, SLIGHTLY CONFUSED. REORIENTED THE PATIENT. HE ASKED TO TAKE OUT HIS IV SO HE CAN GO. WHEN TOLD I'LL CALL HIS MOTHER HE REPLIES HE WILL JUST WALK HOME. PATIENT STATES HE NEEDS TO GO TO WORK. PATIENT GOT UPSET AND COULD NOT FIND THE "BOX" TO CONTROL HIS BED AND CURSED AT NURSES. REDIRECTED THE PATIENT AND IS MORE CALM. ASKED TO BE SAT UP. PATIENT NOW SITTING QUIETLY IN BED, EYES CLOSED. VITAL SIGNS STABLE AT THIS TIME.
--- NOTE | 2018-09-28 06:31 | NUR ---
PATIENT REQUESTING WATER, CONSUMED A FEW SIPS. WILL ENDORSE TO DAY SHIFT NURSE THAT PATIENT IS ABLE TO TAKE PO MEDS. PATIENT DENIES ANY PAIN AT THIS TIME.
--- NOTE | 2018-09-28 06:35 | NUR ---
IN TO ASSESS PATIENT AND GET UPDATES. WILL CARRY OUT ANY NEW ORDERS.
--- NOTE | 2018-09-28 06:46 | NUR ---
PATIENT AWAKE, SITTING UP IN BED, DOZES IN AND OUT. EXPLAINS HE WILL ANSWER ANY QUESTIONS "RIGHT HERE RIGHT NOW, WHATEVER TO LET ME GO" CANNOT NAME THE PRESIDENT, BUT KNOWS HIS NAME, BIRTHDATE AND PLACE. PATIENT REQUESTS TO TALK TO HIS MOM SINCE HE BELIEVES HE CANNOT BE RELEASED. PATIENT ALSO EXPLAINS THAT HE IS NOT IN A GOOD MOOD FOR ANYONE TO BE YELLING AT HIM OR RAISING THEIR VOICE, STATES HE'LL "BUST HEADS IN.." AFTER TELLING HIM WE CAN CALL HIS MOTHER, HE IMMEDIATELY FALLS BACK ASLEEP. CONTINUE ON WITH 1:1 AND REDIRECT PATIENT.
--- NOTE | 2018-09-28 07:05 | NUR ---
PATIENT GIVEN ATIVAN FOR AGITATION, PATIENT THREATENING NURSES, ATTEMPTING TO PULL OUT EQUIPMENT, AND GETTING UP IN BED. PATIENT DIRECTED TO SUPINE POSITION AND COVERED WITH BLANKET. HE IS NOW CALM AND RESTING IN BED. VITAL SIGNS STABLE.
[2018-09-28] MEDS: LORazepam 2 MG/ML VIAL IVP PRN ×5 (07:06→23:14)
--- NOTE | 2018-09-28 07:16 | NUR ---
RECEIVED BEDSIDE REPORT FROM PHOTO INTERN RN IWONA. PT ORIENTED X2, TO NAME AND PLACE. PT IS STILL DROWSY AND LETHARGIC, HOWEVER ASKING WHERE HIS MOM IS AND ASKING TO LEAVE THE HOSP. CALLED PT'S MOTHER [phone], DIDN'T RADIO TIME SALESPERSON AND VOICE MAIL WASN'T SET UP. PT WAS AGITATED, CURSING AND YELLING, AND ATIVAN WAS GIVEN BY PHOTO INTERN RN. PT CURRENTLY SLEEPING IN BED. ON ROOM AIR. BREATHING EVEN AND UNLABORED, SR ON MONITOR AT THIS TIME. LUNG SOUNDS CLEAR, ABDOMEN SOFT, NONTENDER, ACTIVE BOWEL SOUNDS. AFEBRILE. 97.8F. IV TO RIGHT AC 20G RUNNING D5 1/2NS AT 100ML/HR, INTACT AND ASYMPTOMATIC. ALL SAFETY MEASURES IN PLACE, BED IN LOWEST POSITION, SIDE RAILS UP, FALL RISK PRECAUTIONS IN PLACE, ON ONE TO ONE CLOSE MONITORING.
--- NOTE | 2018-09-28 07:16 | NUR ---
ENDORSED CARE AND REPORT TO DAY SHIFT NURSE. PATIENT CALM, EYES CLOSED, LYING DOWN IN BED
[2018-09-28] MEDS: BENZTROPINE 2 MG/2 ML AMP IVP SCH ×3 (08:41→21:00)
--- NOTE | 2018-09-28 10:50 | NUR ---
PT AWAKE, HELPED PT TO USE THE BEDSIDE COMMODE. URINATE X1. HELPED PT WITH BREAKFAST AND ORAL CARE. PT TOOK HIS SCHEDULED AM PO MEDS. CALLED DR BUTLER TO SEE PT. DR BUTLER CAME AND TALKED TO PT.
[2018-09-28] MEDS: THIAMINE 100 MG TAB PO SCH (10:53)
[2018-09-28] MEDS: MULTIVITAMIN 1 TAB PO SCH (10:53)
[2018-09-28] MEDS: FOLIC ACID 1 MG TAB PO SCH (10:53)
--- NOTE | 2018-09-28 10:59 | NUR ---
PT WENT BACK TO SLEEP IN BED. VITALS STABLE.
--- NOTE | 2018-09-28 11:13 | NUR ---
SW attempted to conduct assessment. Per nurse Aspen, patient had just went back to sleep. Nurse stated she would call case management when he wakes up so assessment can be completed. SW/CM will follow up as needed.
--- NOTE | 2018-09-28 11:25 | NUR ---
PT WOKE UP AND SAID HE WANTS TO LEAVE. THREATENING THE NURSE. WE TOLD PT THAT HE JUST HAVE TO WAIT FOR PSYCH EVAL, ONCE HE GETS BETTER, HE CAN GO HOME. PT PULLED OFF THE PULSE OX, NOT COOPERATIVE. WILL GIVE 0.5MG ATIVAN TO CALM PT DOWN.
--- NOTE | 2018-09-28 11:35 | NUR ---
PT LYING IN BED, RESTING. MOTHER CAME TO VISIT. PT WOKE UP AND ASKING FOR SNACKS. PROVIDED PUDDING AND COFFEE. ALSO ORDERED ICE CREAM FROM [employer]ITCH[employer].
--- NOTE | 2018-09-28 11:56 | NUR ---
HELPED PT WITH BEDSIDE COMMODE. URINE X1, CLEAR YELLOW, 500ML.
--- NOTE | 2018-09-28 12:15 | NUR ---
CALLED DR BUTLER, MADE HER AWARE PT'S MOTHER IS HERE AND WANTS TO SPEAK WITH THE DOCTOR.
--- NOTE | 2018-09-28 13:00 | NUR ---
MOTHER AT BEDSIDE TALKING TO PT. PT STARTED REMOVING PULSE OX AND BLOOD PRESSURE CUFF. PT'S MOTHER STARTED SHOUTING STOP, DON'T DO IT. I AND MY CHARGE NURSE TOLD PT'S MOTHER TO STEP ASIDE AND DO NOT ARGUE WITH PT. IV SL AND DISCONNECTED BP AND EKG MONITORING FOR PT'S SAFETY. PT PUNCHING THE BED AND GOT UP FROM BED, YELLING GONNA LEAVE THE HOSPITAL. TOLD PT THAT ALL HE NEEDS TO DO IS WAIT FOR THE DOCTOR EVALUATION TODAY. PT STILL NOT MANAGEABLE. ATIVAN GIVEN FOR ANXIETY AND AGITATION. PT IS BACK TO BED. DR VEGA CAME, TALKED TO PT, THEN PT'S MOTHER.
--- NOTE | 2018-09-28 13:15 | NUR ---
PAGED DR YANG EXCHANGE TO COME AND EVAL PT/
--- NOTE | 2018-09-28 13:20 | NUR ---
CALLED DR ESTRADAMICHI [phone], LEFT HIM A MESSAGE, PROVIDED PT'S NUMBER AND ROOM NUMBER. MADE HIM AWARE PT IS MORE COHERENT BUT VERY AGGRESSIVE. HE NEEDS TO COME AND EVALUATE PT SO WE KNOW WHAT THE PLAN WILL BE, DISCHARGE OR TRANSFER. LEFT UNIT CALL BACK NUMBER. Addendum: 09/28/18 at 1502 by Dontae Robert RN CORRECTION: PROVIDED PT'S 'NAME'
--- NOTE | 2018-09-28 13:30 | NUR ---
PT USED URINAL, OUTPUT 400ML.
--- NOTE | 2018-09-28 13:50 | NUR ---
PT IS CURRENTLY RESTING IN BED, NO S/S OF DISTRESS. IVF D5 1/2NS RUNNING AT 100ML/HR.
--- NOTE | 2018-09-28 14:30 | NUR ---
SPOKE WITH DR PATTEN OVER THE PHONE [phone], PROVIDED DR PATTEN WITH PT'S NAME AND ROOM NUMBER. MADE HIM AWARE PT IS MORE COHERENT BUT VERY AGGRESSIVE TODAY. CAN'T REACH DR PRUETT. ASKING IF HE CAN COME TO EVALUATE PT SO WE KNOW WHAT THE PLAN WILL BE, DISCHARGE OR TRANSFER, WHAT MEDICATIONS TO MANAGE HIM. DR PATTEN SAID HE WILL GET IN TOUCH WITH DR BORDEN FIRST AND IF HE COMES, HE WILL COME AROUND 6PM.
--- NOTE | 2018-09-28 16:00 | NUR ---
PT REFUSED TO PUT BP CUFF, EKG MONITORING AND PULSE OX BACK.
--- NOTE | 2018-09-28 17:01 | NUR ---
DR PRUETT CAME AND EVALUATED PT. NO HOLD. PHYSICAL EVAL TOMORROW. IF PT DOING WELL, HE CAN GO HOME WITH HIS MOTHER. Addendum: 09/28/18 at 1923 by Dontae Robert RN PHYSICAL THERAPY EVAL TOMORROW.
--- NOTE | 2018-09-28 17:20 | NUR ---
PT IS EATING DINNER AT THIS TIME. OFFERED HELP SEVERAL TIMES. PT REFUSED HELP, STATED HE IS GROWN MAN, HE CAN DO IT.
--- NOTE | 2018-09-28 18:00 | NUR ---
PT GOT OUT OF THE BED. ASKED PT SIT DOWN. PT REFUSED. IV SL. TALKED TO PT ABOUT THE PLAN OF CARE, HOWEVER, PT INSISTED ON LEAVING. PT PULLED APART HIS WRIST BAND. WALKED TO ROOM 1, HOWEVER, GAIT IS NOT STEADY. ER NURSE MELISAS AND OTHER STAFFS CAME. PT VERY AGITATED AND THREATEN TO FIGHT THE STAFFS. PT WALKED BACK TO BED, TRYING TO OPEN THE WINDOW. ATIVAN WAS GIVEN. HELPED PT RETURNING TO BED.
--- NOTE | 2018-09-28 18:05 | NUR ---
PT REFUSED TO BE CONNECTED TO IVF.
--- NOTE | 2018-09-28 18:47 | NUR ---
PT PULLED OFF EKG AND DISROBING. STILL REFUSING BP CUFF AND PULSE OX. WENT OVER PLAN OF CARE WITH PT AGAIN. PT APOLOGIZED AND ASKING FOR FOOD. OFFERED PT WITH CHICKEN SANDWICH. PT SAT UP AND EATING.
--- NOTE | 2018-09-28 19:12 | NUR ---
REPORT GIVEN TO GRINDING MACHINE OPERATOR PORTABLE MARCI LAWRENCE.
--- NOTE | 2018-09-28 19:36 | NUR ---
RECEIVED BEDSIDE REPORT FROM MORNING SHIFT RNCELIA. HR 126/80, TEMP 98.6, HR 114, RR=13, SATING 97%. PT IS AWAKE/LETHARGIC/DROWSY, AAOX2, KNOWS NAME/LOCATION, INCOMPREHENSIBLE SPEECH. ST ON MANAGER BIOLOGICS. LUNG SOUNDS CLEAR, BOWEL SOUNDS ACTIVE. PT DENIES PAIN/NAUSEA. PT AGITATED AT HIS TIME, MOMENTARILY COMPLIED WITH BOLT HEADER IN ORDER TO CHECK VITALS AND ALLOWED FOR ASSESSMENT, BUT REFUSED IV FLUIDS AND REQUESTED HE WANTS IV REMOVED. PT EDUCATED IT IS NECESSARY FOR HIS MEDS. PT ASKED IF HE CAN GO OUTSIDE AND "BUM A CIGARETTE" PT INFORMED THAT IT IS NOT SAFE/HE HAS UNSTEADY GAIT. PT HAS RIGHT AC 20 GUAGE, NO IVF INFUSING AT THIS TIME. SIDE RAILS UP X4, PT REFUSED TO WEAR WRIST BAND (ON BEDSIDE TABLE). HOB ELEVATED ABOVE 45 DEG.
--- NOTE | 2018-09-28 20:30 | NUR ---
CALLED JUAN DORMAN. PT AGITATED STATING THAT HE HAD ADDIE IN THE BOX BAG THAT WAS BROUGHT IN BY HIS DAD. TOLD PATIENT IT IS NOT PRESENT ON ICU/OR IN REFRIGERATOR. PT WAS PULLING CURTAINS, CURSING, THREATENING TO LEAVE, PUNCHING BED WITH FIST, NOT FOLLOWING COMMANDS TO STAY IN BED/ROOM. PT INFORMED THAT PHONE CALLS HAVE BEEN MADE TO MOTHER AND WAITING FOR CALL BACK.
--- NOTE | 2018-09-28 20:50 | NUR ---
PT IN BED CALM RELAXED, ORANGE JUICE GIVEN.
[2018-09-28] MEDS ORDERED: LORazepam 2 MG/ML VIAL IVP SCH ×2 (21:30→22:00)
[2018-09-28] MEDS ORDERED: diphenhydrAMINE 50 MG/ML VIAL IVP SCH (21:30)
--- NOTE | 2018-09-28 21:30 | NUR ---
JUAN DORMAN CALLED, PT AGITATED TRYING TO LEAVE, RIPPED BEDSHEET WEARING ON HIS HEAD SAYING HE IS "ANNABELLE". IVP ATIVAN/BENADRYL GIVEN. PT IS IN BED, CALM AT THIS TIME, EATING PUDDING.
--- NOTE | 2018-09-28 21:45 | NUR ---
PT HAD C/O PAIN VIA RIGHT IV AND REQUESTED IT BE REMOVED. INFORMED PATIENT THAT A NEW IV WOULD NEED TO BE PLACED, PT AGREED. MANNY COVARRUBIAS PLACED NEW IV ON LEFT AC, SALINE FLUSHED WITH BLOOD RETURN. Addendum: 09/28/18 at 2357 by Rubi Wyatt RN PT MOTHER EDMUND CALLED BACK, UPDATED ON PATIENT CONDITION, PT WAS ABLE TO SPEAK TO MOTHER AT BEDSIDE VIA PHONE.
--- NOTE | 2018-09-28 22:05 | NUR ---
PT AGITATED AND COMBATIVE STATED HE WANTS TO GET THE F OUT OF HERE, WALKING AROUND ICU HALLWAY. CODE DANDY CALLED.
--- NOTE | 2018-09-28 22:34 | NUR ---
PT AWAKE, HAS WRIST AND LEGS RESTRAINED IN BED.
--- NOTE | 2018-09-28 23:53 | NUR ---
PT SLEEPING, HAS BILATERAL WRIST AND ANKLE RESTRAINTS IN PLACE.
[2018-09-29] VITALS: BP 122/77
--- NOTE | 2018-09-29 00:15 | NUR ---
PT WAKES UP AGITATED/RESTLESS, SHUFFLES HIMSELF UP AND DOWN IN BED AND ATTEMPTED TO REMOVE RESTRAINTS BY BITING AND YANKING ARMS AND LEGS IN THE BED. DOES NOT FOLLOW COMMANDS.
[2018-09-29] MEDS: LORazepam 2 MG/ML VIAL IVP PRN ×2 (01:58→10:26)
--- NOTE | 2018-09-29 02:00 | NUR ---
PT SLEEPING, APPEARS TO BE WITHOUT DISTRESS, NO SIGNS OF RESTLESSNESS. BP 125/68, RR=15, HR 72. Addendum: 09/29/18 at 0702 by Rubi Wyatt RN PT WAKES UP INTERMITTENTLY WITH AGITATION AND BECOMES RESTLESS IN BED. REMAINS ON VELCRO RESTRAINTS AND SEDATION WITH ATIVAN.
[2018-09-29] MEDS: diphenhydrAMINE 50 MG/ML VIAL IVP PRN (03:03)
[2018-09-29 04:00] VITALS: BP 115/76
--- NOTE | 2018-09-29 06:40 | NUR ---
DR. BUTLER IN TO SEE PATIENT UPDATED ON PT CONDITION.
--- NOTE | 2018-09-29 06:53 | NUR ---
PT REMAINS IN VELCRO RESTRAINTS FROM 2219-NOW. PT THROUGHOUT SHIFT WAS UNCOOPERATIVE, DOES NOT FOLLOW COMMANDS, WAKES UP INTERMITTENTLY WITH AGITATION AND RESTLESSNESS, BITING RESTRAINTS AND ATTEMPTED TO GET OUT OF BED. ATTEMPTED TO CALL PT MOTHER VIA PHONE NUMBERS PROVIDED IN CHART,WAS UNABLE TO LEAVE MESSAGE, WAITING FOR MOTHER TO CALL BACK.
[2018-09-29 08:00] VITALS: BP 125/69
--- NOTE | 2018-09-29 08:00 | NUR ---
PATIENT ABLE TO WAKE UP ON COMMANDS, PATIENT ATTEMPTS TO SIT UP IN BED, KICKS LEGS AGGRESSIVELY, ON BEHAVIORAL RESTRAINTS. BED IN LOW POSITION, URINAL AND CALL KIM WITHIN REACH EXPLAINED HOW TO USE AND ALSO CALL FOR HELP WHEN NEEDED. PATIENT DID NOT VERBALIZE UNDERSTANDING. ON ROOM AIR SO2 98%, JUNCTIONAL RHYTHM 72 BPM.
[2018-09-29] MEDS: DEXT 5% / NACL 0.45% 1,000 ML IV SCH (08:30)
--- NOTE | 2018-09-29 09:05 | NUR ---
RE ORIENTED PATIENT. INFORMED PHYSICAL THERAPIST IS HERE TO EVALUATE HIM. OFF RESTRAINTS. PATIENT QUIET AT THIS TIME
--- NOTE | 2018-09-29 09:10 | NUR ---
PHYSICAL THERAPIST AT BEDSIDE. PATIENT ABLE TO WALK IN THE UNIT ON STANDBY SUPPORT
--- NOTE | 2018-09-29 09:25 | NUR ---
DR. BUTLER AT BEDSIDE TALKING AND ASSESSING PATIENT
--- NOTE | 2018-09-29 09:30 | NUR ---
PATIENT REFUSED CONTINUOUS SPO2 AND BP MONITORING. PATIENT REMOVES THEM. DR. BUTLER AWARE. WILL CHECK ONCE PATIENT WILL ALLOW.
[2018-09-29] MEDS: MULTIVITAMIN 1 TAB PO SCH (09:46)
[2018-09-29] MEDS: FOLIC ACID 1 MG TAB PO SCH (09:46)
[2018-09-29] MEDS: THIAMINE 100 MG TAB PO SCH (09:46)
[2018-09-29] MEDS: BENZTROPINE 2 MG/2 ML AMP IVP SCH (09:47)
--- NOTE | 2018-09-29 10:26 | NUR ---
PATIENT AWAKE ASKED "WHERE'S MY PHONE?!" RN INFORMED THAT HIS PHONE IS WITH HIS MOM. PER PATIENT "NO! I USED IT EARLIER!" RE ORIENTED PATIENT. PATIENT STARTED TO MUMBLE WHAT SEEMS LIKE CURSING WORDS. RN ENCOURAGED PATIENT TO BE STILL IN BED HE MIGHT FALL. RE ORIENTED PATIENT. PATIENT CONTINUES TO MUMBLE CURSE WORDS
--- NOTE | 2018-09-29 10:35 | NUR ---
DR. BUTLER AT BEDSIDE AND ORDERED TO RESTART FOUR POINT RESTRAINT
--- NOTE | 2018-09-29 10:36 | NUR ---
RE ORIENTED PATIENT. PER PATIENT "DON'T RESTRAIN ME" PATIENT HAS CALMED DOWN. OFF RESTRAINTS AND WILL CONTINUE TO MONITOR Addendum: 09/29/18 at 1137 by Grace Hayward RN CONTINUATION 10:36 HOURS- DR. BUTLER AND ICU CYNDY CRUMP MADE AWARE OF THE SITUATION AND PATIENT IS OFF RESTRAINTS
[2018-09-29 12:00] VITALS: BP 120/84
--- NOTE | 2018-09-29 12:37 | NUR ---
PATIENT AWAKE. LUNCH TRAY SERVED. PATIENT'S HEAD OF BED UP 90 DEGREES. PATIENT ABLE TO EAT INDEPENDENTLY, RN ON STANDBY ASSIST.
--- NOTE | 2018-09-29 15:39 | NUR ---
PATIENT'S MOTHER EDMUND AT THE BEDSIDE AND ASKED TO SPEAK TO THE PHYSICIAN. TELEPHONED DR. BUTLER AND INFORMED OF SITUATION
--- NOTE | 2018-09-29 15:55 | NUR ---
DR. BORDEN AT BEDSIDE. PER PHYSICIAN PATIENT IS STABLE TO BE DISCHARGED
[2018-09-29 15:57] VITALS: BP 133/88
[2018-09-29 16:00] VITALS: BP 133/88
[2018-09-29] MEDS ORDERED: NICOTINE TRANSD SYS 7 MG/24 HR PATCH TD SCH (16:30)
--- NOTE | 2018-09-29 16:30 | NUR ---
PATIENT DISCHARGED. NO BELONGINGS LEFT AT BEDSIDE. DISCHARGE PACKET GIVEN TO PATIENT. PATIENT'S MOM ALSO HERE ACCOMPANYING PATIENT
[2018-09-30] MEDS ORDERED: NICOTINE TRANSD SYS 7 MG/24 HR PATCH TD SCH (09:00)
== END 2018-09-29 16:30 | disposition home or self-care (01) | DRG 817 ==
LOC: MED 18:20 → MTU 20:12 → MIC 09-25 10:31
PROVIDERS: ADMIT General Practice; ATTEND General Practice
DX: T43.592A Poisoning by other antipsychotics and neuroleptics, intentional self-harm, initial encounter (principal); G92 Toxic encephalopathy; E44.0 Moderate protein-calorie malnutrition; E87.6 Hypokalemia; F10.10 Alcohol abuse, uncomplicated; Z68.20 Body mass index [BMI] 20.0-20.9, adult; Y92.89 Other specified places as the place of occurrence of the external cause; F15.121 Other stimulant abuse with intoxication delirium
CPT/HCPCS: 36415; 70450; 71045; 80048; 80053; 80305; 81003; 82150; 82948; 83036; 83690; 83735; 83880; 84100; 84134; 84439; 84443; 84484; 85025; 85610; 85730; 87081; 93005; 96360; 97161-GP; 99285; A9153; G0480; G0482; J0515; J1200; J1630; J2060; J3411; J3475; J3490; J7030; J7060; Q0092